=== PATIENT | female | born 1945 | race Caucasian/White ===

== ENCOUNTER → 2022-02-02 | Outpatient (CLI) | payer MEDICARE, OTHER ==
--- NOTE | 2022-02-02 17:56 | Diagnostic Imaging Report ---
INDICATION: Knee pain. COMPARISON: None available. TECHNIQUE: Two radiographs of the right knee dated 02/02/2022. FINDINGS: Right total knee arthroplasty is in place. No evidence of hardware complication. No acute fracture or dislocation. No destructive osseous process. A 0.8 cm well-corticated ossific density is noted anterior to the knee joint line. Small knee joint effusion. IMPRESSION: Right total knee arthroplasty without hardware complication or acute fracture. 0.8 cm ossific density along the anterior aspect of the joint line. This could relate to a loose body or postsurgical dystrophic calcifications. Small knee joint effusion. Dictated by: Dictated on workstation # [id number]
== END ==
LOC: ORTHO 14:08
PROVIDERS: ATTEND Orthopaedic Surgery
DX: M25.561 Pain in right knee (principal); M25.461 Effusion, right knee; Z96.651 Presence of right artificial knee joint
CPT/HCPCS: 73560; G0463; 99213

== ENCOUNTER → 2022-07-27 | Outpatient (CLI) | payer MEDICARE, OTHER | LOC: ORTHO 11:45 | PROVIDERS: ATTEND Orthopaedic Surgery | DX: S52.532D Colles' fracture of left radius, subsequent encounter for closed fracture with routine healing (principal); E11.9 Type 2 diabetes mellitus without complications; X58.XXXD Exposure to other specified factors, subsequent encounter | CPT/HCPCS: 99213 ==

== ENCOUNTER 2022-08-04 05:30 | Outpatient (CLI) | payer MEDICARE, OTHER ==
[~2022-08-04] VITALS: Ht 161.3 cm; Wt 65.3 kg
[2022-08-04] MEDS ORDERED: POTA10CA44 PO ×2 (16:07)
[2022-08-04] MEDS ORDERED: GUSE100A SQ ×2 (16:07)
[2022-08-04] MEDS ORDERED: LEVO75CA5 PO ×2 (16:07)
[2022-08-04] MEDS ORDERED: Vit D3 PO ×2 (16:07)
[2022-08-04] MEDS ORDERED: MAGN400C PO ×2 (16:07)
[2022-08-04] MEDS ORDERED: APIX5TAB PO ×2 (16:07)
[2022-08-04] MEDS ORDERED: METO50TA15 PO ×2 (16:07)
[2022-08-04] MEDS ORDERED: LISI10TA25 PO ×2 (16:07)
[2022-08-04] MEDS ORDERED: DOFE250C3 PO ×2 (16:07)
== END 2022-08-04 16:37 | disposition home or self-care (01) ==
LOC: PREOP 05:30
PROVIDERS: ATTEND Orthopaedic Surgery
DX: Z01.818 Encounter for other preprocedural examination (principal)

== ENCOUNTER 2022-08-06 08:00 | Day surgery (SDC) | payer MEDICARE, OTHER ==
[2022-08-06] VITALS (11 sets, daily range): BP systolic 141–163; BP diastolic 60–77
[~2022-08-06] VITALS: Ht 161.3 cm; Wt 65.3 kg
[~2022-08-06 08:00] MED LIST: APIX5TAB PO; DOFE250C3 PO; GUSE100A SQ; LEVO75CA5 PO; LISI10TA25 PO; MAGN400C PO; METO50TA15 PO; POTA10CA44 PO; Vit D3 PO
[2022-08-06] MEDS ORDERED: LACTATED RINGERS 1,000 ML IV PRN (08:45)
[2022-08-06] MEDS ORDERED: ceFAZolin INJECTION 2,000 MG in NS (IVPB) 50 ML IV ONE (08:45)
[2022-08-06] MEDS ORDERED: fentaNYL INJ 100 MCG/2 ML AMP ONE (09:25)
[2022-08-06] MEDS ORDERED: proPOfol 200 MG/20 ML (DIPRIVAN) VIAL IV ONE (09:25)
[2022-08-06] MEDS ORDERED: LIDOCAINE PF 2% 5 ML (XYLOCAINE) VIAL ONE (09:25)
[2022-08-06] MEDS ORDERED: ONDANSETRON 4 MG/2 ML (SDV) Z0FRAN ONE (09:25)
--- NOTE | 2022-08-06 09:30 | Progress Note-Pre Operative ---
Pre-Operative Progress Note Date of Available H&P: Jul 27, 2022 Date H&P Reviewed: August 06, 2022 Time H&P Reviewed: 09:05 History & Physical: H&P Reviewed, Patient Examed, No changes noted Pre-Operative Diagnosis: Left Colles Fracture CAIO ANAYA MD August 06, 2022 09:30
[2022-08-06] MEDS ORDERED: SEVOFLURANE (ULTANE) 15 ML INHAL SOLN ONE (10:40)
--- NOTE | 2022-08-06 10:57 | Operative Report - Ortho ---
Operative Report Surgeon (s)/Boardinghouse Keeper (s) Surgeon CAIO ANAYA MD Boardinghouse Keeper n/a Pre-Operative Diagnosis Left Colles Fracture Post-Operative Diagnosis same Operative Report Date of Procedure: August 06, 2022 Name of Procedure Performed: Open Reduction and Internal Fixation of Left Distal Radius Fracture Description & Findings After obtaining informed consent, the patient was taken to the operating room. General anesthesia was induced. Surgical timeout was taken. The left upper extremity was prepped and draped in the usual sterile fashion. Incision was made over the volar side of the wrist. Radial artery was identified and protected. Fascia was divided, retractors were placed, and the pronator was reflected. Fracture site was exposed. Fracture site was mobilized. Reduction maneuver was performed using traction, wrist flexion, and ulnar deviation. A [employer] distal radius plate was selected and position against the bone using C- arm. A nonlocking screw was placed in the slot of the plate. A nonlocking screw was then placed in the most distal row of the plate. Plate position and reduction were confirmed in the AP and lateral planes. An ulnar sided locking screw was placed in the distal row followed by the ulnar sided locking screw in the 2nd row. C-arm was once again utilized and noted to have good position of hardware with maintained reduction of fracture. 2 locking screws were then placed in the radial styloid position. Nonlocking screw distally was switched for a locking screw. 2 locking screws were placed in the diaphyseal portion of the plate. Images were obtained in the AP, and lateral and demonstrated adequate reduction of the fracture and appropriate position of the hardware. Fi nal images were transferred to PACS. Wound was irrigated with normal saline. Subcutaneous layer was closed with 3-0 vicryl. Skin was closed with 4-0 nylon. Wound was injected locally with marcaine. Arm was dressed with xeroform, 4x4s, webril, volar splint, and LUIS F wrap. Patient tolerated the procedure well and was stable to the recovery room. Anesthesia Type General Estimated Blood Loss minimal Specimen(s) collected/removed None CAIO ANAYA MD August 06, 2022 10:57
[2022-08-06] MEDS ORDERED: OXC5T PO ×2 (10:59)
[2022-08-06] MEDS ORDERED: BUPIVACAINE 0.25% 30 ML (SENSORCAINE) VIAL INJ ONE (11:00)
[2022-08-06] MEDS ORDERED: morphine INJ 10 MG/ML 1ML (SYR OR VIAL) IVP ONE (11:00)
[2022-08-06] MEDS ORDERED: HYDROmorphone 2 MG/ML VIAL (DILAUDID) IV ONE (11:00)
[2022-08-06] MEDS ORDERED: ONDANSETRON 4 MG/2 ML (SDV) Z0FRAN IVP PRN (11:00)
--- NOTE | 2022-08-06 12:05 | Anesthesia-General Post-Op ---
General Patient Condition Mental Status/LOC: Same as Preop Cardiovascular: Satisfactory Nausea/Vomiting: Absent Respiratory: Satisfactory Pain: Controlled Complications: Absent Post Op Complications Complications None Follow Up Care/Instructions Patient Instructions None needed. Anesthesia/Patient Condition Patient Condition Patient is doing well, no complaints, stable vital signs, no apparent adverse anesthesia problems. No complications reported per nursing. STEPHANIE TORRES DO August 06, 2022 12:05
--- NOTE | 2022-08-06 18:22 | Diagnostic Imaging Report ---
INDICATION: ORIF of distal radial fracture COMPARISON: None available. IMPRESSION: Images show placement of a volar interlocking plate and screw combination to fixate the comminuted distal radial fracture. Air Kerma is 0.48 mGy. Please see procedure report for more details. Dictated by: Dictated on workstation # [id number]
== END 2022-08-06 13:30 | disposition home or self-care (01) ==
LOC: SDC 08:00
PROVIDERS: ATTEND Orthopaedic Surgery
DX: S52.532A Colles' fracture of left radius, initial encounter for closed fracture (principal); W01.0XXA Fall on same level from slipping, tripping and stumbling without subsequent striking against object, initial encounter
CPT/HCPCS: 25607; 76000; 82947; 87081; C1713 ×8

== ENCOUNTER → 2022-10-06 | Outpatient (CLI) | payer MEDICARE, OTHER ==
[~2022-10-06] MED LIST changes: +OXC5T PO
--- NOTE | 2022-10-06 11:05 | Diagnostic Imaging Report ---
INDICATION: Closed pelvis fracture COMPARISON: 08/31/2022 TECHNIQUE: 3 radiographs of the left wrist dated 10/06/2022 FINDINGS: Volar plate and screw fixation of the distal radius is again identified. No evidence of hardware complication. Healing distal radial fracture is again identified with alignment remaining stable. Stable ulnar styloid avulsion fracture. No new acute fracture or dislocation. Carpal alignment is stable. Scapholunate intervals within normal limits. Soft tissue swelling about the wrist is again seen. No suspicious radiopaque foreign body. Scattered osseous degenerative changes, greatest involving the 1st CMC joint where there is joint space narrowing and osteophyte formation present. IMPRESSION: Continued interval healing of previously noted internally fixated distal radial fracture without evidence of hardware complication or new acute osseous abnormality Scattered osseous degenerative changes, greatest involving the 1st CMC joint. Dictated by: Dictated on workstation # [id number]
== END ==
LOC: ORTHO 10:08
PROVIDERS: ATTEND Orthopaedic Surgery
DX: S52.532D Colles' fracture of left radius, subsequent encounter for closed fracture with routine healing (principal); M18.12 Unilateral primary osteoarthritis of first carpometacarpal joint, left hand; X58.XXXD Exposure to other specified factors, subsequent encounter
CPT/HCPCS: 73110

== ENCOUNTER → 2022-11-09 | Outpatient (CLI) | payer MEDICARE, OTHER ==
[~2022-11-09] MED LIST changes: -POTA10CA44 PO; +POTA10CA84 PO
== END ==
LOC: ORTHO 10:06
PROVIDERS: ATTEND Orthopaedic Surgery
DX: Z47.89 Encounter for other orthopedic aftercare (principal)

== ENCOUNTER → 2022-12-22 | Outpatient (CLI) | payer MEDICARE, OTHER | LOC: ORTHO 11:17 | PROVIDERS: ATTEND Orthopaedic Surgery | DX: Z47.89 Encounter for other orthopedic aftercare (principal); E11.9 Type 2 diabetes mellitus without complications; Z96.651 Presence of right artificial knee joint | CPT/HCPCS: 99213 ==

== ENCOUNTER → 2023-01-25 | Outpatient (CLI) | payer MEDICARE, OTHER | LOC: ORTHO 14:49 | PROVIDERS: ATTEND Orthopaedic Surgery | DX: M17.11 Unilateral primary osteoarthritis, right knee (principal) | CPT/HCPCS: 20610; G0463; 99213 ==

== ENCOUNTER → 2023-02-15 | Outpatient (CLI) | payer MEDICARE, OTHER | LOC: ORTHO 13:06 | PROVIDERS: ATTEND Orthopaedic Surgery | DX: M17.12 Unilateral primary osteoarthritis, left knee (principal); Z96.651 Presence of right artificial knee joint | CPT/HCPCS: 99213 ==